=== PATIENT | male | born 1990 | race Hispanic/Latino ===

== ENCOUNTER 2017-10-15 19:13 | Emergency (ER) | payer BC ==
[2017-10-15 19:25] VITALS: TEMP 97.7
[2017-10-15 20:47] VITALS: RESP 18; O2SAT 100
[2017-10-15 20:58] LABS: URINE BILIRUBIN NEGATIVE (NEGATIVE); URINE BLOOD NEGATIVE (NEGATIVE); URINE COLOR YELLOW (YELLOW); URINE GLUCOSE (UA) NEG (Normal); URINE KETONE NEGATIVE (NEGATIVE); URINE LEUKOCYTE ESTERASE NEG Leu/uL (Negative); URINE PROTEIN NEGATIVE (NEGATIVE); URINE UROBILINOGEN 0.2-1.0 mg/dL (0.2-1.0); WBC URINE < 1 /hpf (0-5)
[2017-10-15 20:58] LABS: BASO # 0.1 K/uL (0.0-0.2); BASO % 1.2 % (0.0-2.0); EOS # 0.3 K/uL (0.0-0.7); HEMATOCRIT 41.6 % (35.0-51.0); LYMPH # 1.5 K/uL (1.0-4.3); LYMPH % 22.9 % (20.0-40.0); MEAN CELL VOLUME 88.8 fl (80.0-94.0); MEAN CORPUSCULAR HEMOGLOBIN 30.7 pg (27.0-31.0); MEAN CORPUSCULAR HGB CONC 34.5 g/dL (33.0-37.0); MEAN PLATELET VOLUME 8.5 fl (7.2-11.7); MONO # 0.6 K/uL (0.0-0.8); MONO % 9.4 % (0.0-10.0); NEUT # 4.2 K/uL (1.8-7.0); NEUT % 62.5 % (50.0-75.0); NRBC % 0.2 % (0.0-0.0); RED CELL DISTRIBUTION WIDTH 13.3 % (11.5-14.5); WHITE BLOOD COUNT 6.7 K/uL (4.8-10.8)
[2017-10-15 21:00] LABS: ALB/GLOB RATIO 1.5 (1.0-2.1); ALKALINE PHOSPHATASE 82 U/L (38-126); ALT/SGPT 58 U/L (21-72); AST/SGOT 28 U/L (17-59); BILIRUBIN,TOTAL 0.8 mg/dl (0.2-1.3); BLOOD UREA NITROGEN 11 mg/dl (9-20); CALCIUM 9.2 mg/dL (8.4-10.2); CARBON DIOXIDE 30 mmol/L (22-30); CHLORIDE 103 mmol/L (98-107); GFR AFRICAN-AMERICAN > 60; GLUCOSE,RANDOM 88 mg/dL (75-110); POTASSIUM 4.5 MMOL/L (3.6-5.0); SODIUM 141 mmol/l (132-148); TOTAL PROTEIN 7.7 G/DL (6.3-8.2)
--- NOTE | 2017-10-15 21:15 | ED PDOC ---
HPI: Hypertension/Hypotension Time Seen by Provider: 10/15/17 19:57 Chief Complaint (Nursing): High Blood Pressure Chief Complaint (Provider): High Blood Pressure History Per: Patient History/Exam Limitations: no limitations Current Symptoms Are (Timing): Still Present Additional Complaint(s): 27 y/o male with a past medical history of hypertension who presents to the emergency department with an elevated blood pressure and palpitations. Reports that he checked his blood pressure today after episode of palpitations and decided to come to the emergency department. States that approximately 1 week ago he was [facility] for [facility] spasm, was told his blood pressure was high and advised to monitor at home. Patient says blood pressure both then and since was within the 170/100 range. As per history from girlfriend who is a nurse, reports checked his heart rate and was normal with about 80 beats per minute. Denies sweats, chest pain, nausea, and vomiting. Past Medical History Reviewed: Historical Data, Nursing Documentation, Vital Signs Vital Signs: Last Vital Signs Temp 97.7 F 10/15/17 19:22 Pulse 93 H 10/15/17 20:22 Resp 18 10/15/17 20:22 BP 141/85 10/15/17 20:22 Pulse Ox 100 10/15/17 20:22 - Medical History PMH: HTN - Surgical History Surgical History: Tonsillectomy Other surgeries: Wisom tooth removal - Family History Family History: States: Hypertension (Father) - Social History Current smoker - smoking cessation education provided: No Alcohol: Occasional Drugs: Denies - Allergies Allergies/Adverse Reactions: Allergies Allergy/AdvReac Type Severity Reaction Status Date / Time levofloxacin [From Levaquin] Allergy RASH Verified 10/15/17 19:22 Review of Systems ROS Statement: Except As Marked, All Systems Reviewed And Found Negative (As per HPI, otherwise negative) Constitutional: Positive for: Other (Elevated blood pressure). Negative for: Sweats Cardiovascular: Positive for: Palpitations. Negative for: Chest Pain Gastrointestinal: Negative for: Nausea, Vomiting Physical Exam - Reviewed Nursing Documentation Reviewed: Yes Vital Signs Reviewed: Yes - Physical Exam Appears: Positive for: Non-toxic, No Acute Distress Head Exam: Positive for: ATRAUMATIC, NORMAL INSPECTION, NORMOCEPHALIC Skin: Positive for: Normal Color, Warm, Dry Neck: Positive for: Normal, Supple Cardiovascular/Chest: Positive for: Regular Rate, Rhythm. Negative for: Murmur Respiratory: Positive for: Normal Breath Sounds. Negative for: Accessory Muscle Use, Respiratory Distress Gastrointestinal/Abdominal: Positive for: Normal Exam, Soft. Negative for: Tenderness Extremity: Positive for: Normal ROM. Negative for: Pedal Edema Neurologic/Psych: Positive for: Alert, Oriented (x3) - Laboratory Results Result Diagrams: 10/15/17 20:46 10/15/17 20:46 - ECG O2 Sat by Pulse Oximetry: 100 (RA) Pulse Ox Interpretation: Normal Medical Decision Making Medical Decision Making: Time: 2031 Initial Impression: 27 y/o male with palpitations and elevated blood pressure Initial Plan: --EKG --Drug Screen, Urine --Urine DIP --CBC w/ diff --Urinalysis --Reevaluation Time: 2139 --Labs showed no significant abnormalities. Patient is medically stable, requires no further treatment in the ED at this time, and will be discharged home. Patient advised to maintain a log sheet with daily blood pressure measurements with home device to follow up with primary care doctor. Counseling was provided and all questions were answered regarding diagnosis and need for follow up with Dr. Jessica Mcdermott MD. There is agreement to discharge plan. Return if symptoms persist or worsen. Clinical Impression: Palpitations Scribe~Attestation: Documented by Kathy Pelletier, acting as a scribe for Mingo Sandhu MD. Provider Scribe~Attestation: All medical record entries made by the Scribe were at my direction and personally dictated by me. I have reviewed the chart and agree that the record accurately reflects my personal performance of the history, physical exam, medical decision making, and the department course for this patient. I have also personally directed, reviewed, and agree with the discharge instructions and disposition. Disposition - Clinical Impression Clinical Impression: Palpitations - Disposition Referrals: Jessica Mcdermott MD [Medical Doctor] - Disposition: Routine/Home Disposition Time: 21:40 Condition: STABLE Additional Instructions: Please maintain a log of twice to thrice daily blood pressure measurements using a home BP device. Follow up with primary care provider with your BP log in 10-14 days. Instructions: Palpitations (ED), Low Sodium Diet (ED), Hypertension (ED) Forms: [employer] ([place])
[2017-10-15 22:00] VITALS: BP 163/98; PULSE 86
--- NOTE | 2017-10-16 15:16 | CARD ---
APPROVED REPORT EKG Measurement Heart [id number] CT [id number] <Conclusion> Normal sinus rhythm Normal ECG
== END 2017-10-15 22:00 | disposition home or self-care (01) ==
LOC: H.ER 19:13
DX: I10 Essential (primary) hypertension (principal); R00.2 Palpitations
CPT/HCPCS: 80053; 81003; 85025; 93005; 99285; G0480